=== PATIENT | male | born 1995 | race Caucasian/White ===

== ENCOUNTER 2019-12-16 01:08 | Emergency (ER) | payer SELFPAY ==
[~2019-12-16] VITALS: Ht 182.9 cm; Wt 83.9 kg
--- NOTE | 2019-12-16 01:32 | ED Cough/URI ---
General Chief Complaint: Cough/Cold/Flu Symptoms Stated Complaint: COUGH,FEVER,HARD TO BREATHE Nursing Triage Note: PT AMBULATE TO ROOM FS02 WITH C/O COUGH/SOB/FEVER X2 DAYS. Sepsis Screen: No Definite Risk Source: patient Exam Limitations: no limitations History of Present Illness Date Seen by Provider: Dec 16, 2019 Time Seen by Provider: 01:22 Initial Comments 24-year-old male presents with cough 2 days. Reports today the fever and feels a little bit short of breath. Patient denies any nausea vomiting or diarrhea. Patient has no known Covid-19 positive contacts. Patient has not traveled. Patient with no other systemic complaints Allergies and Home Medications Patient Home Medication List Home Medication List Reviewed: Yes Review of Systems Review of Systems Constitutional: No chills; fever Respiratory: cough, short of breath Cardiovascular: No chest pain Gastrointestinal: no symptoms reported Genitourinary: no symptoms reported Musculoskeletal: no symptoms reported Skin: no symptoms reported Past Trvetel-Bvwzsm-Swogdl Hx Past Med/Social Hx: Reviewed Nursing Past Med/Soc Hx Patient Social History Recent Foreign Travel: No Contact w/Someone Who Travel: No Recent Infectious Disease Expo: No Physical Exam Vital Signs - First Documented 12/16/19 01:22 Temp 36.6 Pulse 66 Resp 17 B/P (MAP) 125/61 (82) O2 Delivery Room Air Capillary Refill : Less Than 3 Seconds Height: '" Weight: lbs. oz. 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, alert, normal mood/affect, oriented x 3 Skin: normal color, warm/dry Progress/Results/Core Measures Suspected Sepsis Recent Fever Within 48 Hours: No Infection Criteria Present: None New/Unexplained Altered Menta: No Sepsis Screen: No Definite Risk SIRS Temperature: Pulse: 66 Respiratory Rate: 17 Blood Pressure 125 /61 Mean: 82 Results/Orders Lab Results Laboratory Tests Test 12/16/19 01:32 Range/Units Group A Streptococcus Screen NEGATIVE NEGATIVE Micro Results Microbiology 12/16/19 Influenza Types A,B Antigen (BENIGNO) - Final, Complete 12/16/19 Respiratory Syncytial Virus Ag - Final, Complete My Orders Orders - WILLIAM MARTIN DO Rapid Strep A Screen (12/16/19 01:26) Influenza A And B Antigens (12/16/19 01:26) Rsv Antigen (12/16/19 01:26) Chest Pa/Lat (2 View) (12/16/19 01:26) Vital Signs/I&O 12/16/19 12/16/19 01:22 01:26 Temp 36.6 Pulse 66 Resp 17 B/P (MAP) 125/61 (82) O2 Delivery Room Air Room Air Capillary Refill : Less Than 3 Seconds Blood Pressure Mean: 82 Progress Note : Progress Note Patient with negative chest x-ray, negative influenza, negative strep, negative RSV. Based on current [facility], [facility] recommendations and concerns due to the coronavirus. Patient will be placed on home quarantined for 2 weeks. Patient should return to the ER if develops shortness of breath. He is discharged home in stable condition Diagnostic Imaging Diagonstic Imaging: Xray Plain Films/CT/US/NM/MRI: chest Departure Impression Primary Impression: Upper respiratory infection Qualified Codes: J06.9 - Acute upper respiratory infection, unspecified Disposition: HOME, SELF-CARE Condition: Stable Departure-Patient Inst. Referrals: MICHELLE MAGDALENO MD (PCP/Family) Primary Care Physician Patient Instructions: Viral Upper Respiratory Infection, Adult (DC) Add. Discharge Instructions: You'll need to self quarantine for 14 days along with immediate family. Please refrain from going out for any non-emergent or nonessential needs. Please follow guidelines issues by [facility] in [facility] Please follow Critical access hospital and [facility] guidelines for seeking emergent care in the ER Emergency department focuses on treating and ruling out life-threatening diseases. Whenever possible, a diagnosis is given. However, most patients are given an impression based on their history, physical exam, and workup during your brief time in the ER. Information about probable diagnosis and other educational material has been provided. Please take the time to read and understand this information. It is very important that you follow up with a physician as discussed during the visit today. Failure to adhere to your follow-up instructions may lead to severe disability, injury, or so please make sure to keep your appointments or obtain one as requested. Please keep in mind the emergency department is not designed to your primary care or "family doctor" and nonurgent issues are best evaluated by an outpatient physician All discharge instructions reviewed with patient and/or family. Voiced understanding. Work/School Note: Work Release Form Date Seen in the Emergency Department: Dec 16, 2019 Return to Work: Dec 31, 2019 WILLIAM MARTIN DO Dec 16, 2019 01:32
[2019-12-16 02:17] VITALS: BP 129/71
--- NOTE | 2019-12-16 07:04 | Diagnostic Imaging Report ---
INDICATION: Cough, fever. COMPARISON: None available TECHNIQUE: Frontal and lateral radiographs of the chest dated 12/16/2019. FINDINGS: The cardiac silhouette and pulmonary vasculature are within normal limits. The lungs appear hyperexpanded though are clear of focal pulmonary opacity. No pleural effusion. No pneumothorax. No acute osseous abnormality. IMPRESSION: Pulmonary hyperexpansion without superimposed acute cardiopulmonary abnormality. Dictated by: Dictated on workstation # [id number]
== END 2019-12-16 02:17 | disposition home or self-care (01) ==
LOC: EDUNIT# 01:08 → ER FS 01:15
DX: J06.9 Acute upper respiratory infection, unspecified (principal)
CPT/HCPCS: 71046; 87420; 87430; 87804

== ENCOUNTER 2020-11-24 16:17 | Emergency (ER) | payer SELFPAY ==
[~2020-11-24] VITALS: Ht 182 cm; Wt 90.5 kg
[2020-11-24 16:30] VITALS: BP 124/66
--- NOTE | 2020-11-24 16:46 | ED Integumentary General ---
General Stated Complaint: ITCHY BACK/ABD Source: patient Exam Limitations: no limitations History of Present Illness Date Seen by Provider: Nov 24, 2020 Time Seen by Provider: 16:30 Initial Comments Patient presents ER by private conveyance from home with chief complaint for the past days had a progressive rash itching burning sensation started out in his back and this radiated around to his front chest and bilateral arms. Even has itching and burning where he does not have significant rash. He says he did tear out some carpet last week but he was wearing long sleeves and jacket the entire time. He has not had any new medications, new foods he is aware of, new toothpaste, soaps, lotions, bath soaps shampoo etc. no one else has similar rash. He tried Benadryl 1 tablet twice today with only mild relief. He tried some [id number] lotions with cocoa butter with minimal relief. He tried topical steroid with little relief. Allergies and Home Medications Patient Home Medication List Home Medication List Reviewed: Yes Review of Systems Review of Systems Constitutional: No chills, No diaphoresis EENTM: No ear discharge, No ear pain Respiratory: No cough, No short of breath Cardiovascular: No chest pain, No palpitations Gastrointestinal: No abdominal pain, No nausea, No vomiting Genitourinary: No discharge, No dysuria Musculoskeletal: No back pain, No joint pain All Other Systems Reviewed Negative Unless Noted: Yes Past Aenyisp-Fxstav-Qfhpsn Hx Patient Social History Alcohol Use: Denies Use Drug of Choice: Denies Smoking Status: Current Everyday Smoker Type Used: Cigars 2nd Hand Smoke Exposure: Yes Recent Hopitalizations: No Seasonal Allergies Seasonal Allergies: No Past Medical History Surgeries: Yes (PART OF COLON REMOVED) Appendectomy Respiratory: No Cardiac: No Neurological: No Genitourinary: No Gastrointestinal: Yes (PART OF COLON REMOVED) Endocrine: No HEENT: No Cancer: No Psychosocial: No Blood Disorders: No Physical Exam Vital Signs Capillary Refill : General Appearance: WD/WN, no apparent distress HEENT: PERRL/EOMI, pharynx normal Neck: full range of motion, normal inspection Cardiovascular: normal peripheral pulses, regular rate, rhythm Respiratory: no respiratory distress, no accessory muscle use Gastrointestinal: non tender, soft Neurologic/Psychiatric: alert, normal mood/affect, oriented x 3 Skin: other (Blanchable erythematous patchy rash over the trunk front and back that is pruritic.) Progress/Results/Core Measures Progress Progress Note : Time: 16:43 Progress Note Appears to be an allergic rash. Bryn put him on a second-generation antihistamine with Benadryl for breakthrough itching and a round of steroids with instructions to follow-up if he needs a repeat dose of steroids. Departure Impression Primary Impression: Rash due to allergy Additional Impression: Pruritus Disposition: 01 HOME, SELF-CARE Condition: Stable Departure-Patient Inst. Decision time for Depature: 16:44 Referrals: MICHELLE MAGDALENO MD,LOCAL PHYSICIAN (PCP) Primary Care Physician Patient Instructions: Skin Rash (DC), Allergy Skin Testing Add. Discharge Instructions: Continue to keep your skin well moisturized with a good nonscented, hypoallergenic ointment such as CeraVe, Eucerin, neutraDerm etc. Topical steroids can be applied to the areas that are most irritated if you wish. Zyrtec or Claritin 1 tablet, 10 mg once or twice a day to control your itching. If you have breakthrough itching you can use 1 or 2 tablets of Benadryl every 6 hours. Drink plenty of fluids. Prednisone 2 tablets daily for the next 5 days. If you are still having some residual symptoms follow-up for a repeat course of steroids. Return to the ER if you are having difficulty breathing, swelling tongue etc. Scripts Prednisone (Prednisone) 20 Mg Tab 40 MG PO DAILY for 5 Days, #10 TAB 0 Refills Prov: JADA OLGUIN 11/24/20 JADA OLGUIN Nov 24, 2020 16:46
[2020-11-24] MEDS ORDERED: PRD20T PO (16:47)
== END 2020-11-24 16:52 | disposition home or self-care (01) ==
LOC: EDUNIT# 16:17 → ER FS 16:18
DX: R21 Rash and other nonspecific skin eruption (principal); L29.9 Pruritus, unspecified; F17.290 Nicotine dependence, other tobacco product, uncomplicated
CPT/HCPCS: 99281